=== PATIENT | female | born 1950 ===

== ENCOUNTER 2020-12-10 07:05 | Day surgery (SDC) | payer OTHER, SELFPAY ==
[2020-12-10 07:13] VITALS: BP 136/81; PULSE 71; RESP 16; TEMP 36.4; O2SAT 97
[2020-12-10] MEDS: Tropicam./Phenyleph. (1/2.5%) 5 ML BTL OD ×3 (07:20→07:30)
[2020-12-10] MEDS: Tetracaine 0.5% 4 ML BTL OD (08:15)
[2020-12-10] MEDS: Balanced Salt Soln.-PLUS 500 ML BAG (08:17)
[2020-12-10] MEDS: Duovisc Viscoelastic System EACH 1 EACH (08:17)
[2020-12-10] MEDS: Lidocaine 1% Pres-Free 5 ML VIAL (08:17)
[2020-12-10] MEDS: Lidocaine 2% Jelly 6 ML SYR (08:18)
[2020-12-10] MEDS: Povidone-Iodine Ophth 30 ML BTL (08:20)
--- NOTE | 2020-12-10 08:41 | W.PM.DSUDISC ---
Discharge Plan Disposition Patient Disposition: HOME Condition: Good Discharge Details Attending Provider: Kevin Richard Primary Care Provider: Neo Cuenca Home Meds and New Rx's Prescriptions: No Action methylphenidate HCl [Ritalin] 10 mg Tablet 15 mg PO DAILY RF: 0 propranolol 10 mg Tablet 10 mg PO DAILY RF: 0 trazodone 100 mg Tablet 100 mg PO HS RF: 0 pantoprazole 40 mg Tablet,Delayed Release (Dr/Ec) 40 mg PO BID RF: 0 Vitamin B-12 Tablet,Chewable 1 tab PO DAILY RF: 0 escitalopram oxalate 10 mg Tablet 10 mg PO DAILY RF: 0 bupropion HCl 300 mg Tablet Extended Release 24 Hr 300 mg PO DAILY RF: 0 calcium 500 mg Tablet 650 mg PO DAILY RF: 0 Premarin 0.625 mg/gram Cream 0.625 applic vaginal DAILY RF: 0 folic acid 1 mg Tablet 1 mg PO DAILY RF: 0 vitamin B6-vitamin E-magnesium Tablet 1 tab PO DAILY RF: 0 vitamin E acetate 100 unit Capsule 100 unit PO DAILY RF: 0 Discharge Instructions Stand Alone Forms: Post-op Topical Cataract, Dawit Dubois (DSU) Discharge Orders Discharge Orders: Discharge Order (Routine); Ordered 12/10/20 Ordered By: Kevin Richard DS: Diagnosis Discharge Diagnosis (1) Nuclear sclerotic cataract of right eye: Status: Resolved
--- NOTE | 2020-12-10 08:42 | W.PM.OP ---
Date of service: 12/10/20 Time of Service: 08:42 Operative Note Operative Note DATE OF PROCEDURE: 12/10/20 PRE-OP DIAGNOSIS: Nuclear cataract, right eye POST-OP DIAGNOSIS: same PROCEDURE: Cataract extraction using phacoemulsification with intraocular lens implant, right eye SURGEON: Kevin Richard ANESTHESIA: MAC and local (sub-tenon's anesthetic infiltration) ESTIMATED BLOOD LOSS: 0 PATHOLOGY: none sent COMPLICATIONS: None Patient was transported to: same day Patient's condition: stable Implants: [employer] / [employer] Tecnis ZCB00 intraocular lens Indications: Progressive decreased vision due to cataract, right eye Procedure Description: CATARACT SURGERY OPERATIVE REPORT PREOPERATIVE DIAGNOSIS: Nuclear cataract, right eye POSTOPERATIVE DIAGNOSIS: Same OPERATION: Cataract extraction using phacoemulsification with posterior chamber intraocular lens implant, right eye. IOL: IOL [employer]/Model: [employer] / HOANG Tecnis ZCB00 IOL Power: + 18.50 diopters IOL Serial Number: [id number] Optic Diameter: 6.0mm Haptic/Overall Diameter: 13.0mm PHACO INFO: Vince [employer]atter.[employer] Vision System with [employer]Zil and [employer] Cumulative Dispersed Energy (CDE): 8.18 seconds SURGEON: Kevin Richard MD, ANTHONY ANESTHESIA: Monitored Anesthesia Care (MAC), with local sub-tenon's anesthetic infiltration COMPLICATIONS: None SPECIMENS: None INDICATIONS FOR PROCEDURE: Patient is a 70-year-old lady with history of myopia and contact lens wear. She is noted to have a moderate nuclear cataract in the right eye. She significant symptomatic that she desires cataract surgery attempt to improve and maximize her vision. She wears a toric contact lens in her right eye. The amount of her stigmatism is quite low. The plan was to try to minimize the amount of astigmatism by doing a superior phaco incision, however excess over the brow is limited, so the standard superior temporal incision will be made. PROCEDURE: The correct surgical eye was identified and marked as the right eye and the pupil was dilated in the preoperative area using mydriatics and cycloplegics. The dilated pupil size was 8.0 mm. Oral sedation was administered in the form of an Imprimis MKO Melt (midazolam 3mg/ketamine 25mg/ondansetron 2mg). The patient was brought to the operating room where cardiopulmonary monitoring was instituted and surgical time-out was performed, confirming the correct operative eye and IOL power. Topical anesthesia was administered and ophthalmic povidone-iodine 5% was instilled into the conjunctival fornices. Lidocaine gel was applied to the cornea and the gilma-ocular area was prepped with Betadine 10% solution and draped in the usual sterile fashion for intraocular surgery, including an aperture drape. A Tegaderm transparent film dressing was cut in half and used to cover the lashes and lid margins. Care was taken to sequester the lashes and lid margins under the Tegaderm dressing. A lid speculum was placed between the lids of the operative eye and the Camila-Chon operating microscope was maneuvered into position. Uziel scissors were then used to make a conjunctival buttonhole approximately 6mm posterior to the limbus in the inferonasal quadrant. Blunt dissection was carried out to expose bare sclera, and a blunt-tipped sub-tenon?s anesthesia cannula was introduced and passed posteriorly along the globe where non-preserved plain lidocaine was injected into posterior sub-Tenon?s space. A sideport knife was used to make a paracentesis port inferiortemporally. Intraocular phenylephrine/lidocaine was injected into the anterior chamber. The anterior chamber was then filled with viscoelastic. A 2.4mm keratome knife was used to create a half-thickness groove at the limbus and then to construct a three-plane near-clear corneal tunnel extending 2.0mm into clear cornea in the superiortemporal position. . A flap was raised on the anterior capsule and capsulorhexis forceps were used to complete a continuous curvilinear capsulorhexis of 5.0 mm. Balanced salt solution was then used to perform cortical cleaving hydrodissection and nuclear hydrodelineation until the lens could be freely rotated within the capsular bag. The lens nucleus was then disassembled and removed within the capsular bag and iris plane using phacoemulsification. Residual cortical material was removed using the I/A handpiece. The posterior capsule was carefully polished to remove as much residual lens epithelial cells as safely possible. The capsular bag was then inflated and the anterior chamber deepened with viscoelastic. The lens implant described above was inserted into the capsular bag using the HOANG [place] Injector. A Kuglen hook was used to dial the IOL into position. Residual viscoelastic was then removed first from posterior to the IOL, then from the anterior chamber using the I/A handpiece. The lens implant was noted to center nicely within the capsular bag. The incisions were stromally hydrated, and the anterior chamber was reformed using BSS. Then 0.5cc of moxifloxacin 1.0mg/ml were injected into the capsular bag and anterior chamber. The incisions were checked with a Weck spear and found to be secure. Several drops of ophthalmic povidone-iodine 5% were then applied to the eye followed by two drops of Imprimis combination prednisolone/moxifloxacin/nepafenac solution. The drapes were removed and a clear plastic protective eye shield was placed over the eye. The patient was then returned to [facility] in stable condition.
[2020-12-10 09:08] VITALS: BP 114/71; PULSE 80; RESP 16; TEMP 36.5; O2SAT 97
== END 2020-12-10 09:10 | disposition home or self-care (01) ==
PROVIDERS: PCP Family Medicine; Visit Provider Ophthalmology
PROC: (CPT 66984; principal; 2020-12-10 08:30)
DX: H25.11 Age-related nuclear cataract, right eye (principal); K21.9 Gastro-esophageal reflux disease without esophagitis
CPT/HCPCS: 66984; V2632